=== PATIENT | male | born 1995 | race Two or more races ===

== ENCOUNTER 2016-06-10 03:21 | Emergency (ER) | payer SELFPAY ==
[~2016-06-10] VITALS: Ht 162.6 cm; Wt 57.2 kg
[2016-06-10] MEDS ORDERED: KETOROLAC TROMETHAMINE 60 MG/2 ML SYRINGE. IM ONE (04:00)
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
[2016-06-10] MEDS ORDERED: IBUP-1060 PO (04:16)
[2016-06-10 04:44] VITALS: BP 99/58
--- NOTE | 2016-06-10 07:39 | RAD ---
EXAM: Right hand, 3 views. HISTORY: Pain. COMPARISON: None. FINDINGS: Frontal, lateral and oblique views of the right hand are obtained. There is a healed fifth metacarpal fracture. No acute fracture is seen. The alignment and joint spaces are unremarkable. IMPRESSION: 1. No acute osseous finding. 2. Healed right fifth metacarpal fracture.
--- NOTE | 2016-06-10 07:41 | RAD ---
EXAM: Pelvis and right hip, 2 views. HISTORY: Pain. COMPARISON: None. FINDINGS: A frontal view of the pelvis and frog-leg view the right hip are obtained. There is no acute fracture, dislocation or subluxation. There is internal fixation of a right iliac wing fracture with a malleable plate and multiple screws. There is a bone island within the right ischium. IMPRESSION: No acute osseous finding.
== END 2016-06-10 04:45 | disposition home or self-care (01) ==
LOC: ER 03:21
DX: M25.551 Pain in right hip (principal); V89.2XXA Person injured in unspecified motor-vehicle accident, traffic, initial encounter; Y92.413 State road as the place of occurrence of the external cause; Y93.89 Activity, other specified; Y99.8 Other external cause status
CPT/HCPCS: 73130; 73502; 96372; 99284; J1885